=== PATIENT | female | born 1930 | race African-American/Black ===

== ENCOUNTER 2019-05-14 15:27 | Inpatient (IN) | payer MEDICARE, BC ==
[~2019-05-14] VITALS: Ht 172.7 cm; Wt 59.0 kg
[2019-05-14 16:00] VITALS: BP 183/61
[2019-05-14 16:41] VITALS: BP 183/61
[2019-05-14] MEDS ORDERED: MEST60 MT (17:07)
[2019-05-14] MEDS ORDERED: MAGNESIUM HYDROXIDE 400MG/5ML 30ML UDC PO PRN (19:15)
[2019-05-14] MEDS ORDERED: ONDANSETRON HCL 4MG/2ML INJ IV PRN (19:15)
[2019-05-14] MEDS ORDERED: MAGNESIUM/ALUMINUM HYDROXIDE/SIMETHICONE 30ML UDC PO PRN (19:15)
[2019-05-14] MEDS ORDERED: LORAZEPAM 0.5MG TABLET PO PRN (19:15)
[2019-05-14] MEDS ORDERED: ACETAMINOPHEN 325MG TABLET PO PRN (19:15)
[2019-05-14] MEDS ORDERED: DIPHENHYDRAMINE 50MG/ML VIAL IV PRN (19:15)
[2019-05-14 20:00] VITALS: BP 158/72
[2019-05-14] MEDS ORDERED: CLONAZEPAM 0.5MG TABLET PO PRN (20:00)
[2019-05-14 21:07] LABS: BASOPHILS % 0.8 % (0.0-2.0); EOSINOPHILS % 0.4 % (0.0-5.0); HEMATOCRIT. 35.4 % (36.0-48.0); HEMOGLOBIN. 11.7 g/dL (12.0-16.0); LYMPHOCYTES % 16.3 % (20.0-50.0); MEAN CORPUSCULAR HEMOGLOBIN 30.4 pg (28.0-32.0); MEAN CORPUSCULAR VOLUME 91.4 fL (81.0-99.0); MEAN PLATELET VOLUME 8.2 fl (7.4-10.4); MONOCYTES % 7.9 % (2.0-8.0); NEUTROPHILS % 74.6 % (40.0-76.0); PLATELET 287 x1000/uL (130-400); RED BLOOD CELL COUNT 3.87 mill/uL (4.2-5.4); RED CELL DISTRIBUTION WIDTH 13.5 % (11.6-14.6)
[2019-05-14 21:10] LABS: CHLORIDE 103 mEq/L (98-107)
[2019-05-14 21:15] LABS: LDL CHOLESTEROL 119 mg/dL (5-100)
[2019-05-14 21:18] LABS: HDL CHOLESTEROL 98 mg/dL (40-59)
[2019-05-15] VITALS (7 sets, daily range): BP systolic 120–170; BP diastolic 49–84
[2019-05-15] MEDS: PYRIDOSTIGMINE BROMIDE 60MG TABLET PO SCH ×5 (01:20→21:15)
[2019-05-15] MEDS: FAMOTIDINE 20MG TABLET PO SCH ×2 (01:20→21:15)
[2019-05-15] MEDS: SODIUM CHLORIDE 0.9% INJ 3ML FLUSH IVF SCH ×4 (01:21→21:16)
[2019-05-15 06:25] LABS: CHLORIDE 104 mEq/L (98-107)
[2019-05-15 06:34] LABS: PHOSPHORUS 3.4 mg/dL (2.5-4.9)
[2019-05-15 06:36] LABS: HDL CHOLESTEROL 90 mg/dL (40-59); LDL CHOLESTEROL 116 mg/dL (5-100)
[2019-05-15] MEDS: DICLOFENAC SODIUM 75MG DR (EC) TABLET PO SCH (06:39)
[2019-05-15 07:13] LABS: EOSINOPHILS % 1.2 % (0.0-5.0); HEMATOCRIT. 33.5 % (36.0-48.0); HEMOGLOBIN. 11.1 g/dL (12.0-16.0); MEAN CORPUSCULAR HEMOGLOBIN 30.3 pg (28.0-32.0); MEAN PLATELET VOLUME 7.9 fl (7.4-10.4); MONOCYTES % 9.5 % (2.0-8.0); NEUTROPHILS % 69.3 % (40.0-76.0); PLATELET 307 x1000/uL (130-400); RED BLOOD CELL COUNT 3.68 mill/uL (4.2-5.4); RED CELL DISTRIBUTION WIDTH 13.2 % (11.6-14.6)
[2019-05-15] MEDS ORDERED: ATORVASTATIN CALCIUM 40MG TABLET PO SCH (21:00)
[2019-05-16] VITALS: BP 159/50
[2019-05-16 04:00] VITALS: BP 151/55
[2019-05-16] MEDS: DICLOFENAC SODIUM 75MG DR (EC) TABLET PO SCH (07:34)
[2019-05-16] MEDS: SODIUM CHLORIDE 0.9% INJ 3ML FLUSH IVF SCH ×2 (07:35→13:10)
[2019-05-16 08:00] VITALS: BP 156/62
[2019-05-16] MEDS ORDERED: ASPIRIN 81MG EC TABLET PO SCH (09:00)
[2019-05-16] MEDS ORDERED: AMLODIPINE 2.5MG TABLET PO SCH (09:00)
[2019-05-16] MEDS: PYRIDOSTIGMINE BROMIDE 60MG TABLET PO SCH ×3 (09:10→16:54)
[2019-05-16 12:00] VITALS: BP 114/51
[2019-05-16 16:00] VITALS: BP 159/64
[2019-05-16 17:38] VITALS: BP 159/64
== END 2019-05-16 18:22 | disposition home or self-care (01) | DRG 66 ==
LOC: 5WST 15:27
PROVIDERS: ADMIT Internal Medicine; ATTEND Internal Medicine
DX: I63.9 Cerebral infarction, unspecified (principal); G70.00 Myasthenia gravis without (acute) exacerbation; D64.9 Anemia, unspecified; H91.90 Unspecified hearing loss, unspecified ear; I10 Essential (primary) hypertension; E78.5 Hyperlipidemia, unspecified; R62.7 Adult failure to thrive; E78.00 Pure hypercholesterolemia, unspecified; Z90.710 Acquired absence of both cervix and uterus; Z90.49 Acquired absence of other specified parts of digestive tract; Z79.82 Long term (current) use of aspirin; Z79.899 Other long term (current) drug therapy; Z82.3 Family history of stroke; Z88.5 Allergy status to narcotic agent
CPT/HCPCS: 36415; 80048; 80053; 80061; 83036; 83519; 83735; 84100; 84443; 85025; 92523; 93005; 93306; 93880; 93970; 95816; 97162; 97165